=== PATIENT | female | born 1960 | race Caucasian/White ===

== ENCOUNTER → 2019-09-21 13:40 | Outpatient (BNVA) | payer BC, SELFPAY | PROVIDERS: Family Provider Internal Medicine; Referring Provider Internal Medicine; Visit Provider Otolaryngology | DX: E21.0 Primary hyperparathyroidism (principal) | CPT/HCPCS: 99213; 99214 ==

== ENCOUNTER 2020-08-27 16:05 | Emergency (ER) | payer OTHER, SELFPAY ==
[2020-08-27] VITALS (9 sets, daily range): BP systolic 115–147; BP diastolic 72–99; PULSE 90–116; RESP 17–23; TEMP 38.2; O2SAT 92–100; BMI 33.6
--- NOTE | 2020-08-27 17:16 | XRR_ITS ---
PROCEDURE INFORMATION: Exam: XR Chest, 1 View Exam date and time: 08/27/2020 5:30 PM Age: 60 years old Clinical indication: Shortness of breath; Patient HX: Covid +. SOB; Additional info: SOB. Note: Bra in picture TECHNIQUE: Imaging protocol: XR of the chest Views: 1 view. COMPARISON: CR Chest 1 [place] [id number] 07/11/2019 1:27 PM FINDINGS: Lungs: Hazy bilateral interstitial pulmonary infiltrates have developed since old chest radiographs. This is consistent with an interstitial pneumonitis possibly viral in nature. There is mild atelectasis along the diaphragm. Pleural space: Unremarkable. No pleural effusion. No pneumothorax. Heart/Mediastinum: Unremarkable. No cardiomegaly. Bones/joints: Unremarkable. XR/XR chest 1V portable [id number] IMPRESSION: Bilateral interstitial pulmonary infiltrates consistent with a viral pneumonitis.
--- NOTE | 2020-08-27 17:16 | ECG_ITS ---
[facility] Test Date: 2020-08-27 Pat Name: Pari Linares Department: Room: Gender: Female Maintenance Superintendent: : 1960 Requested By: Marce Diehl Order Number: [id number] Butch MD: Cinthya Tilley M.D. Measurements Intervals [place] Rate: 115 P: GA: QRS: -14 QRSD: 100 T: 74 QT: 348 QTc: 482 Interpretive Statements ATRIAL FIBRILLATION WITH RAPID VENTRICULAR RESPONSE INCOMPLETE RIGHT BUNDLE BRANCH BLOCK [90+ ms QRS DURATION, TERMINAL R IN V1/V2, 40+ ms S IN I/aVL/V4/V5/V6] MINIMAL ST DEPRESSION [0.025+ mV ST DEPRESSION] ABNORMAL RHYTHM ECG Compared to ECG 07/12/2019 08:29:57 Incomplete right bundle-branch block now present ST (T wave) deviation now present Atrial flutter no longer present T-wave abnormality no longer present Electronically Signed On 08-28-2020 23:42:33 REPRODUCTION ARTIST by Cinthya Tilley M.D. [id number]
--- NOTE | 2020-08-27 17:34 | ED_ITS ---
Documented by User: Lance Moran DO 08/29/20 14:31 HPI - COVID General: Chief Complaint: COVID symptoms Stated Complaint: COVID+/ SOB/ Time Seen by Provider: 08/27/20 17:16 Triage information: Has fever, cough or shortness of breath . No known COVID + exposure last 14 days History of Present Illness: HPI Narrative: 60-year-old female presents emergency room with complaint of shortness of breath cough diarrhea and fever. She tested positive for COVID-19 at [facility] on 08/20. She is not on oxygen at home and is not needing any supplemental oxygen at this time. She is on Eliquis because of a history of atrial fibrillation as well as diltiazem and propafenone. She supposed to be on 1-1/2 tablets 3 times daily. She only took 1 dose today. She is noted that when she arrived she is in A. fib with RVR with a rapid rate. MD complaint: known COVID positive Prior covid testing: yes, results known Prior testing date: 08/20/20 COVID 19 common symptoms: positive fever(s), chills, cough, non-productive cough, dyspnea, fatigue, body aches, loss of sense of smell and/or taste, nasal congestion, nausea, vomiting and diarrhea; negative productive cough or headache(s) COVID 19 other sytmptoms: negative chest pain or requiring oxygen Onset (ago): day(s) Severity: mild Pertinent comorbid conditions: diabetes, hypertension and other (Atrial fibrillation) COVID Results: No Data to Display Review of Systems Const: Reports: fever(s), chills, body aches and fatigue ENMT: Reports: nasal congestion Card: Denies: chest pain, edema, dyspnea on exertion or orthopnea Resp: Reports: dyspnea and non-productive cough; Denies: productive cough GI: Reports: nausea, vomiting and diarrhea : Denies: flank pain, difficulty voiding, dysuria, urinary frequency or urinary urgency Skin/Breast: Denies: rash or pruritus Neuro: Denies: headache(s) PFSH ED PFSH: Medical History Anticoagulation adequate with anticoagulant therapy Atrial flutter Diabetes Essential hypertension Fibromyalgia Obesity Supraventricular tachycardia Family History Other CAD (coronary artery disease) Cancer Diabetes Stroke Social History Smoking and tobacco status: never smoked Alcohol intake: former Former alcohol use details: very rare use and none in the last 3 years Physical Exam Const: COMMON NORMALS: no acute distress GENERAL APPEARANCE: cooperative and comfortable ORIENTATION/CONSCIOUSNESS: Yes awake, Yes oriented to person, Yes oriented to place and Yes oriented to time HENMT: COMMON NORMALS: normocephalic, atraumatic and hearing grossly normal bilaterally HEAD & SCALP: normocephalic and atraumatic Eye: COMMON NORMALS: Equal, round and reactive pupils present, EOMs intact cody aterally, conjunctivae normal and no scleral icterus CONJUNCTIVA: Yes conjunctivae normal PUPIL: Yes Equal, round and reactive pupils present Neck/C-Spine: COMMON NORMALS: full ROM, no lymphadenopathy, supple and no JVD Lymph: LYMPHATIC: no lymphadenopathy noted and no lymphedema noted Resp: COMMON NORMALS: normal respiratory effort, No retractions and No use of accessory muscles AUSCULTATION: crackles and wheezes Cardio: COMMON NORMALS: no JVD and No murmurs present (Cardio) RATE: tachycardic RHYTHM: abnormal rhythm irregularly irregular GI: COMMON NORMALS: Soft to palpation and No hepatosplenomegaly present AUSCULTATION: Yes normoactive bowel sounds PALPATION: Yes Soft to palpation, No Tenderness to palpation present (GI), No Guarding due to palpation present (GI) and Yes No hepatosplenomegaly present Extremity: COMMON NORMALS: normal to inspection, capillary refill normal, no clubbing, cyanosis or edema, no calf tenderness and no pedal edema Neuro: SENSORIUM/ORIENTATION: Yes oriented to person, Yes oriented to place and Yes oriented to time Skin: COMMON NORMALS: no rashes or lesions noted GENERAL SKIN EXAM: no rashes or lesions noted Course Vital Signs: Vital signs: Vital Signs Temperature 100.7 F H 08/27/20 16:13 Pulse Rate 90 08/27/20 22:02 Respiratory Rate 20 H 08/27/20 22:02 Blood Pressure 130/82 08/27/20 22:02 Pulse Oximetry 99 08/27/20 22:02 MDM - COVID MDM Narrative: Medical decision making narrative: Patient initially presented in A. fib but not taken her medications. She was given a full dose of her home propafenone and converted. Care turned over to Dr. Carpenter at change of shift see his notes for final diagnosis and disposition. Lab Data: Labs: Lab Results 08/27/20 08/27/20 08/27/20 Range/Units 17:45 18:00 18:00 WBC 5.7 (4.0-10.0) 10^3/ uL RBC 5.30 (4.1-5.3) 10^6/u L Hgb 15.1 (11.5-15.3) g/dL Hct 46.7 (37.0-47.0) % MCV 88.1 (81-99) fL MCH 28.5 (28.0-34.0) pg MCHC 32.3 (30.0-36.0) g/dL RDW 13.2 (12.1-15.1) % Plt Count 179 (130-400) 10^3/c mm MPV 12.0 H (7.4-10.4) fL Neut % (Auto) 77.9 % Lymph % (Auto) 15.1 % Christian % (Auto) 6.5 % Eos % (Auto) 0.0 % Baso % (Auto) 0.0 % Neut # (Auto) 4.44 (1.8-7.7) 10^3/u L Lymph # (Auto) 0.9 (0.8-4.8) 10^3/u L Christian # (Auto) 0.4 (0.2-0.9) 10^3/u L Eos # (Auto) 0.0 (0.0-0.8) 10^3/u L Baso # (Auto) 0.0 (0.0-0.1) 10^3/u L Nucleated RBC % (a uto) 0 % Nucleated RBCs # 0.0 /100WBC D-Dimer 0.61 H (0-0.59) ug/mIFE U Specimen Type Arterial Sample Site Brachial, right ABG pH 7.48 H (7.35-7.45) ABG pCO2 32.5 L (35-45) mmHg ABG pO2 64.9 L (80.0-100.0) mmH g ABG HCO3 24.2 (22-26) mmol/L ABG Base Excess 1.4 (-2.0-2.0) mmol/ L Neal Test Pos Hematocrit 45.9 (37-47) % O2 Delivery Device Room air FiO2 21.0 % Truck Driver'S Offsider ID Bd Sodium (136-145) mmol/L Potassium (3.5-5.1) mmol/L Chloride (98-107) mmol/L Carbon Dioxide (22-29) mmol/L Anion Gap (5-19) BUN (8-23) mg/dL Creatinine (0.5-0.9) mg/dL GFR Calculation (90-130) mL/min Glucose (65-115) mg/dL Calculated Osmolal ity (285-295) mOsm/k g Lactic Acid (0.5-2.2) mmol/L Calcium (8.5-10.5) mg/dL Magnesium (1.7-2.3) mg/dL Total Bilirubin (0.15-1.2) mg/dL AST (0-32) U/L ALT (0-33) U/L Alkaline Phosphata se (35-105) IU/L C-Reactive Protein (0.0-4.9) mg/L NT-Pro-B Natriuret Pep (0-125) pg/mL Total Protein (6.6-8.7) g/dL Albumin (3.5-5.2) g/dL Globulin (1.3-4.6) g/dL Procalcitonin (0-0.5) ng/mL 08/27/20 08/27/20 Range/Units 18:00 18:00 WBC (4.0-10.0) 10^3/ uL RBC (4.1-5.3) 10^6/u L Hgb (11.5-15.3) g/dL Hct (37.0-47.0) % MCV (81-99) fL MCH (28.0-34.0) pg MCHC (30.0-36.0) g/dL RDW (12.1-15.1) % Plt Count (130-400) 10^3/c mm MPV (7.4-10.4) fL Neut % (Auto) % Lymph % (Auto) % Christian % (Auto) % Eos % (Auto) % Baso % (Auto) % Neut # (Auto) (1.8-7.7) 10^3/u L Lymph # (Auto) (0.8-4.8) 10^3/u L Christian # (Auto) (0.2-0.9) 10^3/u L Eos # (Auto) (0.0-0.8) 10^3/u L Baso # (Auto) (0.0-0.1) 10^3/u L Nucleated RBC % (a uto) % Nucleated RBCs # /100WBC D-Dimer (0-0.59) ug/mIFE U Specimen Type Sample Site ABG pH (7.35-7.45) ABG pCO2 (35-45) mmHg ABG pO2 (80.0-100.0) mmH g ABG HCO3 (22-26) mmol/L ABG Base Excess (-2.0-2.0) mmol/ L Neal Test Hematocrit (37-47) % O2 Delivery Device FiO2 % Truck Driver'S Offsider ID Sodium 135 L (136-145) mmol/L Potassium 4.5 (3.5-5.1) mmol/L Chloride 99 (98-107) mmol/L Carbon Dioxide 22 (22-29) mmol/L Anion Gap 18.5 (5-19) BUN 12 (8-23) mg/dL Creatinine 0.6 (0.5-0.9) mg/dL GFR Calculation 102.0 (90-130) mL/min Glucose 212 H (65-115) mg/dL Calculated Osmolal ity 286 (285-295) mOsm/k g Lactic Acid 1.8 (0.5-2.2) mmol/L Calcium 9.3 (8.5-10.5) mg/dL Magnesium 1.9 (1.7-2.3) mg/dL Total Bilirubin 0.4 (0.15-1.2) mg/dL AST 26 (0-32) U/L ALT 24 (0-33) U/L Alkaline Phosphata se 120 H (35-105) IU/L C-Reactive Protein 73.3 H (0.0-4.9) mg/L NT-Pro-B Natriuret Pep 43 (0-125) pg/mL Total Protein 6.7 (6.6-8.7) g/dL Albumin 3.5 (3.5-5.2) g/dL Globulin 3.2 (1.3-4.6) g/dL Procalcitonin 0.06 (0-0.5) ng/mL COVID Results: No Data to Display Discharge Plan Discharge Patient Disposition: Home Clinical Impression: COVID-19 Condition: Stable Prescriptions: New ondansetron 4 mg tablet,disintegrating 4 mg PO Q6H PRN (Reason: nausea and vomiting) Qty: 14 RF: 0 No Action Eliquis 5 mg tablet 5 mg PO BID RF: 0 cholecalciferol (vitamin D3) 1,000 unit capsule 1,000 unit PO QDAY RF: 0 diltiazem HCl 120 mg capsule,extended release 12 hr 120 mg PO DAILY RF: 0 propafenone 150 mg tablet 225 mg PO TID RF: 0 gabapentin 100 mg capsule 100 mg PO TID PRNRF: 0 Discharge Orders: Discharge ED (Routine); Ordered 08/27/20 Ordered By: Radha Carpenter Other Ambulatory Orders: DME: Oxygen (Order) Location: None Selected Ordered By: Radha Carpenter Referrals: Leonel Tipton DO [Primary Care Provider] - 1-3 days Discharge Diet: Advance as tolerated Discharge Activity: Resume usual activity Patient Instructions: Dyspnea (ED) Coding Level of Care Code ED Copyright Clerk for Chg Fwd Exam Comprehensive Documented by User: Radha Carpenter MD 08/27/20 20:49 HPI - COVID General: Chief Complaint: COVID symptoms Stated Complaint: COVID+/ SOB/ Time Seen by Provider: 08/27/20 17:16 COVID Results: No Data to Display PFSH ED PFSH: Medical History Anticoagulation adequate with anticoagulant therapy Atrial flutter Diabetes Essential hypertension Fibromyalgia Obesity Supraventricular tachycardia Family History Other CAD (coronary artery disease) Cancer Diabetes Stroke Social History Smoking and tobacco status: never smoked Alcohol intake: former Former alcohol use details: very rare use and none in the last 3 years Course Vital Signs: Vital signs: Vital Signs Temperature 100.7 F H 08/27/20 16:13 Pulse Rate 90 08/27/20 22:02 Respiratory Rate 20 H 08/27/20 22:02 Blood Pressure 130/82 08/27/20 22:02 Pulse Oximetry 99 08/27/20 22:02 MDM - COVID MDM Narrative: Medical decision making narrative: Pari presents here with dyspnea likely due to her COVID-19. Patient's pulse ox here is 93% and lab work here is all normal. I feel she is stable for discharge. She has had no distress here. We will place her on home oxygen as needed. She is to return if worsening. She understands and agrees to plan. Lab Data: Labs: Lab Results 08/27/20 08/27/20 08/27/20 Range/Units 17:45 18:00 18:00 WBC 5.7 (4.0-10.0) 10^3/ uL RBC 5.30 (4.1-5.3) 10^6/u L Hgb 15.1 (11.5-15.3) g/dL Hct 46.7 (37.0-47.0) % MCV 88.1 (81-99) fL MCH 28.5 (28.0-34.0) pg MCHC 32.3 (30.0-36.0) g/dL RDW 13.2 (12.1-15.1) % Plt Count 179 (130-400) 10^3/c mm MPV 12.0 H (7.4-10.4) fL Neut % (Auto) 77.9 % Lymph % (Auto) 15.1 % Christian % (Auto) 6.5 % Eos % (Auto) 0.0 % Baso % (Auto) 0.0 % Neut # (Auto) 4.44 (1.8-7.7) 10^3/u L Lymph # (Auto) 0.9 (0.8-4.8) 10^3/u L Christian # (Auto) 0.4 (0.2-0.9) 10^3/u L Eos # (Auto) 0.0 (0.0-0.8) 10^3/u L Baso # (Auto) 0.0 (0.0-0.1) 10^3/u L Nucleated RBC % (a uto) 0 % Nucleated RBCs # 0.0 /100WBC D-Dimer 0.61 H (0-0.59) ug/mIFE U Specimen Type Arterial Sample Site Brachial, right ABG pH 7.48 H (7.35-7.45) ABG pCO2 32.5 L (35-45) mmHg ABG pO2 64.9 L (80.0-100.0) mmH g ABG HCO3 24.2 (22-26) mmol/L ABG Base Excess 1.4 (-2.0-2.0) mmol/ L Neal Test Pos Hematocrit 45.9 (37-47) % O2 Delivery Device Room air FiO2 21.0 % Truck Driver'S Offsider ID Bd Sodium (136-145) mmol/L Potassium (3.5-5.1) mmol/L Chloride (98-107) mmol/L Carbon Dioxide (22-29) mmol/L Anion Gap (5-19) BUN (8-23) mg/dL Creatinine (0.5-0.9) mg/dL GFR Calculation (90-130) mL/min Glucose (65-115) mg/dL Calculated Osmolal ity (285-295) mOsm/k g Lactic Acid (0.5-2.2) mmol/L Calcium (8.5-10.5) mg/dL Magnesium (1.7-2.3) mg/dL Total Bilirubin (0.15-1.2) mg/dL AST (0-32) U/L ALT (0-33) U/L Alkaline Phosphata se (35-105) IU/L C-Reactive Protein (0.0-4.9) mg/L NT-Pro-B Natriuret Pep (0-125) pg/mL Total Protein (6.6-8.7) g/dL Albumin (3.5-5.2) g/dL Globulin (1.3-4.6) g/dL Procalcitonin (0-0.5) ng/mL 08/27/20 08/27/20 Range/Units 18:00 18:00 WBC (4.0-10.0) 10^3/ uL RBC (4.1-5.3) 10^6/u L Hgb (11.5-15.3) g/dL Hct (37.0-47.0) % MCV (81-99) fL MCH (28.0-34.0) pg MCHC (30.0-36.0) g/dL RDW (12.1-15.1) % Plt Count (130-400) 10^3/c mm MPV (7.4-10.4) fL Neut % (Auto) % Lymph % (Auto) % Christian % (Auto) % Eos % (Auto) % Baso % (Auto) % Neut # (Auto) (1.8-7.7) 10^3/u L Lymph # (Auto) (0.8-4.8) 10^3/u L Christian # (Auto) (0.2-0.9) 10^3/u L Eos # (Auto) (0.0-0.8) 10^3/u L Baso # (Auto) (0.0-0.1) 10^3/u L Nucleated RBC % (a uto) % Nucleated RBCs # /100WBC D-Dimer (0-0.59) ug/mIFE U Specimen Type Sample Site ABG pH (7.35-7.45) ABG pCO2 (35-45) mmHg ABG pO2 (80.0-100.0) mmH g ABG HCO3 (22-26) mmol/L ABG Base Excess (-2.0-2.0) mmol/ L Neal Test Hematocrit (37-47) % O2 Delivery Device FiO2 % Truck Driver'S Offsider ID Sodium 135 L (136-145) mmol/L Potassium 4.5 (3.5-5.1) mmol/L Chloride 99 (98-107) mmol/L Carbon Dioxide 22 (22-29) mmol/L Anion Gap 18.5 (5-19) BUN 12 (8-23) mg/dL Creatinine 0.6 (0.5-0.9) mg/dL GFR Calculation 102.0 (90-130) mL/min Glucose 212 H (65-115) mg/dL Calculated Osmolal ity 286 (285-295) mOsm/k g Lactic Acid 1.8 (0.5-2.2) mmol/L Calcium 9.3 (8.5-10.5) mg/dL Magnesium 1.9 (1.7-2.3) mg/dL Total Bilirubin 0.4 (0.15-1.2) mg/dL AST 26 (0-32) U/L ALT 24 (0-33) U/L Alkaline Phosphata se 120 H (35-105) IU/L C-Reactive Protein 73.3 H (0.0-4.9) mg/L NT-Pro-B Natriuret Pep 43 (0-125) pg/mL Total Protein 6.7 (6.6-8.7) g/dL Albumin 3.5 (3.5-5.2) g/dL Globulin 3.2 (1.3-4.6) g/dL Procalcitonin 0.06 (0-0.5) ng/mL Imaging Data: CXR: Attestation: I personally reviewed and interpreted this imaging study as follows: My impression: Slight perihilar infiltrates COVID Results: No Data to Display Discharge Plan Discharge Patient Disposition: Home Clinical Impression: COVID-19 Condition: Stable Prescriptions: New ondansetron 4 mg tablet,disintegrating 4 mg PO Q6H PRN (Reason: nausea and vomiting) Qty: 14 RF: 0 No Action Eliquis 5 mg tablet 5 mg PO BID RF: 0 cholecalciferol (vitamin D3) 1,000 unit capsule 1,000 unit PO QDAY RF: 0 diltiazem HCl 120 mg capsule,extended release 12 hr 120 mg PO DAILY RF: 0 propafenone 150 mg tablet 225 mg PO TID RF: 0 gabapentin 100 mg capsule 100 mg PO TID PRNRF: 0 Discharge Orders: Discharge ED (Routine); Ordered 08/27/20 Ordered By: Radha Carpenter Other Ambulatory Orders: DME: Oxygen (Order) Location: None Selected Ordered By: Radha Carpenter Referrals: Leonel Tipton DO [Primary Care Provider] - 1-3 days Discharge Diet: Advance as tolerated Discharge Activity: Resume usual activity Patient Instructions: Dyspnea (ED) Coding Level of Care Code ED Copyright Clerk for Chg Fwd Exam Comprehensive
[2020-08-27 17:56] LABS: ABG PCO2 32.5 mmHg (35-45); ABG PH Result 7.48 (7.35-7.45); Arterial Blood Gas Hematocrit 45.9 % (37-47); Base Excess ABG 1.4 mmol/L (-2.0-2.0); Blood Gas Allen Test Pos; Blood Gas Operator Identificat BD; Blood Gas Sample Site Brachial, right; Blood Gas Sample Type Arterial; HCO3 ABG 24.2 mmol/L (22-26); Oxygen Device ROOM AIR; PO2 ABG 64.9 mmHg (80.0-100.0)
[2020-08-27] MEDS: propafenone 150 mg Tablet PO (18:16)
[2020-08-27] MEDS: acetaminophen 325 mg Tablet 650 MG PO (18:16)
[2020-08-27 18:53] LABS: Hematocrit 46.7 % (37.0-47.0); Hemoglobin 15.1 g/dL (11.5-15.3); Lymphocytes # 0.9 10^3/uL (0.8-4.8); Lymphocytes % 15.1 %; Mean Corpuscular HGB Conc 32.3 g/dL (30.0-36.0); Mean Corpuscular Hemoglobin 28.5 pg (28.0-34.0); Mean Corpuscular Volume 88.1 fL (81-99); Monocytes # 0.4 10^3/uL (0.2-0.9); Monocytes % 6.5 %; Neutrophils # 4.44 10^3/uL (1.8-7.7); Neutrophils % 77.9 %; Nucleated Red Blood Cells % 0 %; Platelet Count 179 10^3/cmm (130-400); Red Cell Distribution Width 13.2 % (12.1-15.1); White Blood Count 5.7 10^3/uL (4.0-10.0)
[2020-08-27 19:46] LABS: Lactic Sepsis W/Reflex 1.8 mmol/L (0.5-2.2)
[2020-08-27] MEDS: sodium chloride 0.9% 1,000 ML 999 ML IV (20:05)
[2020-08-27 20:06] LABS: NT Pro B Type Natriuretic Pept 43 pg/mL (0-125); Procalcitonin 0.06 ng/mL (0-0.5)
[2020-08-27 20:18] LABS: Alanine Aminotransferase 24 U/L (0-33); Albumin Level 3.5 g/dL (3.5-5.2); Alkaline Phosphatase 120 IU/L (35-105); Blood Urea Nitrogen 12 mg/dL (8-23); C Reactive Protein 73.3 mg/L (0.0-4.9); Calcium 9.3 mg/dL (8.5-10.5); Carbon Dioxide 22 mmol/L (22-29); Chloride 99 mmol/L (98-107); Globulin 3.2 g/dL (1.3-4.6); Glucose 212 mg/dL (65-115); Magnesium 1.9 mg/dL (1.7-2.3); Osmolality Calculated 286 mOsm/kg (285-295); Sodium 135 mmol/L (136-145); Total Bilirubin 0.4 mg/dL (0.15-1.2); Total Protein 6.7 g/dL (6.6-8.7)
[2020-08-27 20:20] LABS: Anion Gap 18.5 (5-19); Potassium 4.5 mmol/L (3.5-5.1)
[2020-08-27 20:21] LABS: Aspartate Amino Transferase 26 U/L (0-32)
[2020-08-27 20:23] LABS: D Dimer 0.61 ug/mIFEU (0-0.59)
== END 2020-08-27 22:04 | disposition home or self-care (01) ==
PROVIDERS: Family Medicine; Emergency Provider Emergency Medicine; PCP Internal Medicine
DX: U07.1 COVID-19 (principal); Z79.01 Long term (current) use of anticoagulants; I10 Essential (primary) hypertension; E11.9 Type 2 diabetes mellitus without complications
CPT/HCPCS: 12345; 36600; 71045; 80053; 82803; 83605; 83735; 83880; 84145; 85025; 85378; 86140; 93005; 96360; 99282; 99283; J7030

== ENCOUNTER → 2020-11-22 09:10 | Outpatient (BNVA) | payer OTHER, SELFPAY | PROVIDERS: PCP Internal Medicine; Visit Provider Nurse Practitioner Women's Health | DX: Z01.419 Encounter for gynecological examination (general) (routine) without abnormal findings (principal); Z12.39 Encounter for other screening for malignant neoplasm of breast; Z79.01 Long term (current) use of anticoagulants; N93.0 Postcoital and contact bleeding | CPT/HCPCS: 88175 ==

== ENCOUNTER 2021-01-02 14:42 | Outpatient (CLI) | payer OTHER, SELFPAY ==
--- NOTE | 2021-01-02 15:30 | MM_ITS ---
WS: [id number] BILATERAL DIGITAL SCREENING MAMMOGRAPHY WITH CAD CLINICAL INFORMATION: Z12.39 - Encounter for other screening for malignant neoplasm of breast HISTORY: Screening mammogram. No current complaints. COMPARISON: February 18, 2019 TECHNIQUE: Bilateral CC and MLO views. FINDINGS: Scattered fibroglandular densities bilaterally. No suspicious focal mass, asymmetry, calcifications, or architectural distortion. No evidence of malignancy. A few punctate calcifications. MM/[place] [id number] IMPRESSION: BI-RADS: 2-Benign FOLLOW UP: 1 Year Follow-up Recommend return to annual screening mammography.
== END 2021-01-02 14:43 | disposition home or self-care (01) ==
LOC: RADSHAW 14:45
PROVIDERS: PCP Internal Medicine; Visit Provider Nurse Practitioner Women's Health
DX: Z12.31 Encounter for screening mammogram for malignant neoplasm of breast (principal)
CPT/HCPCS: 77067

== ENCOUNTER → 2021-05-23 10:43 | Outpatient (BNVA) | payer OTHER, SELFPAY | PROVIDERS: PCP Internal Medicine; Visit Provider Nurse Practitioner Women's Health | DX: N95.0 Postmenopausal bleeding (principal) | CPT/HCPCS: 76830 ==

== ENCOUNTER → 2021-06-04 11:46 | Outpatient (BNVA) | payer OTHER, SELFPAY | PROVIDERS: PCP Internal Medicine; Visit Provider Nurse Practitioner Women's Health | DX: N95.0 Postmenopausal bleeding (principal) | CPT/HCPCS: 88305 ==

== ENCOUNTER → 2021-08-08 10:51 | Outpatient (BNVA) | payer OTHER, SELFPAY | PROVIDERS: PCP Internal Medicine; Visit Provider Obstetrics & Gynecology | DX: Z20.822 Contact with and (suspected) exposure to COVID-19 (principal); N95.0 Postmenopausal bleeding | CPT/HCPCS: 87635 ==

== ENCOUNTER 2021-08-13 08:45 | Day surgery (SDC) | payer OTHER, SELFPAY ==
--- NOTE | 2021-08-08 13:15 | ECG_ITS ---
[facility] Test Date: 2021-08-08 Pat Name: Pari Linares Department: Room: Gender: Female Surgical Technician: : 1960 Requested By: Osmel Earl Order Number: [id number] Butch MD: Wilson Ann M.D. Measurements Intervals [place] Rate: 76 P: 90 MN: 204 QRS: -17 QRSD: 104 T: 63 QT: 391 QTc: 441 Interpretive Statements SINUS RHYTHM WITH FREQUENT SUPRAVENTRICULAR PREMATURE COMPLEXES INCOMPLETE RIGHT BUNDLE BRANCH BLOCK [90+ ms QRS DURATION, TERMINAL R IN V1/V2, 40+ ms S IN I/aVL/V4/V5/V6] NONSPECIFIC T-WAVE ABNORMALITY Compared to ECG 08/27/2020 19:46:40 T-wave abnormality now present Atrial fibrillation no longer present ST (T wave) deviation no longer present Electronically Signed On 08-10-2021 7:49:17 HAND BRUSH FILLER by Wilson Ann M.D. [id number]
[2021-08-08 13:16] VITALS: BMI 31.8
--- NOTE | 2021-08-08 19:49 | ANES.PREANE2 ---
Pre-Anesthetic Assessment Pre-Anesthetic Assessment: Height/Weight: Height 1.6 m Weight 81.647 kg Preop Diagnosis: pmb, thickened endometrium Proposed Procedure: Operation Date: 08/13/21 11:30 Proposed Procedures p Hysteroscopy w/ Myosure [id number] N95.0(Not Applicable) - Stefania Wylie MD s Dilation And Curettage (D&C)(Not Applicable) - Stefania Wylie MD Was Beta Yanira taken within 24 hours: N/A Was Clonidine taken within 24 hours: N/A Social: Social History: No alcohol and No tobacco Exam: Pre-Anes Outpt Exam: alert, oriented x 3 and clear to auscultation bilaterally Airway: Submandibular: WNL Cervical ROM: WNL MP: 2 Pulmonary: Pulmonary: None reported CV/HEM: CV/HEM: Afib, Arrythmia and HTN : : None reported Hepatic: Hepatic: None reported GI: GI: None reported Metabolic: Comments: Primary Hyperparathyroidism Musc/skel: Musc/skel: Fibromyalgia Neuropsych: Neuropsych: None reported Anesthetic Plan: ASA status: 3 PFSH Anesthesia PFSH: Medical History Anticoagulation adequate with anticoagulant therapy Atrial flutter Diabetes Essential hypertension Fibromyalgia Insomnia Obesity Supraventricular tachycardia Surgical History H/O tubal ligation (~1987) History of appendectomy (~2002) History of cholecystectomy (~2003) History of coronary angioplasty (~1999) History of right salpingo-oophorectomy (~1987) History of tonsillectomy and adenoidectomy Hx of hand surgery (~2012) R hand- crps Family History Father Colon cancer dx age 83 Stroke Diabetes Grandmother Diabetes Maternal and Paternal Heart disease Maternal and Paternal Mother Heart disease Hypercholesteremia Stroke Grandfather Heart disease Maternal and Paternal Denies family history of Ovarian cancer Breast cancer Hypertension Uterine cancer Thyroid disease Data Anesthesia Cardiac Studies: No Data to Display
[2021-08-13 08:55] VITALS: BP 149/104; PULSE 86; RESP 18; TEMP 36.2; O2SAT 97
[2021-08-13] MEDS: sodium chloride 0.9% 1,000 ML 30 ML IV (09:08)
[2021-08-13 09:15] LABS: Glucose Point of Care 182 mg/dL (70-110)
--- NOTE | 2021-08-13 09:41 | P.ANESUD_ITS ---
Pre-Anesthetic Update Pre-Anesthetic Assessment: Date of Surgery/Procedure: 08/13/21 Preop Yokasta gnosis: pmb, thickened endometrium Proposed Procedure: Operation Date: 08/13/21 10:10 Proposed Procedures p Hysteroscopy w/ Myosure [id number] N95.0(Not Applicable) - Stefania Wylie MD s Dilation And Curettage (D&C)(Not Applicable) - Stefania Wylie MD Any changes to Pre-Anesthetic Assessment?: No Last Intake: Intake Last Liquid Date 08/12/21 Last Liquid Time 22:30 Last Solid Date 08/12/21 Last Solid Time 17:00 Labs Last 48hrs: Laboratory Results - last 48 hr 08/13/21 09:10 POC Glucose 182 H Vitals: Temperature 97.1 F L 08/13/21 08:55 Temperature Source Temporal Artery S can 08/13/21 08:55 Pulse Rate 86 08/13/21 08:55 Respiratory Rate 18 08/13/21 08:55 Blood Pressure 149/104 08/13/21 08:55 Blood Pressure Kianna n 119 08/13/21 08:55 Pulse Oximetry 97 08/13/21 08:55 Oxygen Delivery Me thod 08/13/21 08:59 Exam: Pre-Anes Outpt Exam: alert, oriented x 3, clear to auscultation bilaterally and regular rate & rhythm Cardiac Studies: No Data to Display
--- NOTE | 2021-08-13 10:12 | W.PM.OPSUD ---
Surgery/Procedure H&P Update DATE OF PROCEDURE: August 13, 2021 DATE H&P PERFORMED: 07/12/21 H&P UPDATE INFORMATION: I have reviewed H&P completed within last 30 days, I have examined patient prior to procedure and No changes to prior documentation PREOP DIAGNOSIS: pmb, thickened endometrium PLANNED PROCEDURE: Operation Date: 08/13/21 10:10 Proposed Procedures p Hysteroscopy w/ Myosure [id number] N95.0(Not Applicable) - Stefania Wylie MD s Dilation And Curettage (D&C)(Not Applicable) - Stefania Wylie MD
[2021-08-13 11:14] VITALS: BP 94/47; PULSE 81; RESP 12; TEMP 36.1; O2SAT 94
--- NOTE | 2021-08-13 11:15 | P.OP_ITS ---
Operative Report Date of procedure: August 13, 2021 Pre-op Diagnosis: pmb, thickened endometrium Post-op diagnosis: same Post-op Findings: normal appearing endometrium with two polyps Procedure Done: hysteroscopy, dilation and curettage with myosure Specimens removed/disposition: endometrial polyps to pathology Surgeon: Stefania Wylie Anesthesia: MAC Estimated blood loss (mL): 0 IV fluids (mL): 300 Complications: none Condition: stable Disposition: PACU Procedure: The patient was taken to the operating room where monitored anesthesia was administered and to be adequate. She was prepped and draped in the normal sterile fashion in the dorsal lithotomy position in [facility]. A weighted speculum was placed into the vagina and the anterior lip of the cervix grasped with a single-tooth tenaculum. The uterus was sounded to 9 cm. The cervix was dilated to 17 Turkish. The hysteroscope was advanced into the endometrial cavity. There were two endometrial polyps visualized. The MyoSure device was activated and the tissue was removed. Pictures were taken pre and post procedure. All instruments were removed. The patient tolerated the procedure well. Sponge lap and needle counts were correct x3. She was taken to the recovery room in stable condition.
[2021-08-13 11:19] VITALS: BP 114/63; PULSE 81; RESP 14; TEMP 36.2; O2SAT 93
--- NOTE | 2021-08-13 11:19 | P.DS_ITS ---
Discharge Providers Date of Discharge: August 13, 2021 Attending Provider at Discharge: Stefania Wylie MD Primary Care Provider: Leonel Tipton DO Diagnoses at Discharge Discharge Diagnosis (1) Postoperative state: Status: Acute Reason for Visit Reason for Visit: Postmenopausal bleeding Hospital Course Hospital Course The patient presented for surgery. She did well postoperatively and was ready for discharge. Discharge Data Data Completed and Pending: Pending at discharge Category Date Time Status ES surgery / GI i mages Routine Exams 08/13/21 10:53 Taken Pathology: Surgic al [PTH] Routine Pth 08/13/21 11:19 Ordered Labs from last 24 hours 08/13/21 09:10 POC Glucose 182 H Vitals: Last Vital Signs Temp 97.0 F L 08/13/21 11:14 Pulse 81 08/13/21 11:14 Resp 12 08/13/21 11:14 BP 94/47 08/13/21 11:14 Pulse Ox 94 08/13/21 11:14 Discharge Plan Discharge Patient Disposition: Home Condition: Stable Prescriptions: Continued Eliquis 5 mg tablet 5 mg PO BID RF: 0 diltiazem HCl 120 mg capsule,extended release 12 hr 120 mg PO DAILY RF: 0 gabapentin 100 mg capsule 100 mg PO TID PRN (Reason: Pain) RF: 0 cholecalciferol (vitamin D3) 25 mcg (1,000 unit) capsule 4,000 unit PO QDAY RF: 0 propafenone 225 mg tablet 225 mg PO TID Qty: 270 RF: 0 misoprostol [Cytotec] 200 mcg tablet 600 mcg PO Q6H Qty: 12 RF: 0 Discharge Orders: Discharge Order (Routine); Ordered 08/13/21 Ordered By: Stefania Wylie Discharge Attestations Time Spent in Discharge Care*: less than 30 min Quality Metrics Clinical Quality Measures During this hospital stay, did patient experience: None Coding Level of Care Code Acute Ch[facility] note Diagnoses Postoperative state Z98.890
[2021-08-13 11:24] VITALS: BP 76/54; PULSE 80; RESP 18; TEMP 36.8; O2SAT 90
[2021-08-13 11:34] VITALS: BP 126/80; PULSE 79; RESP 16; TEMP 36.7; O2SAT 92
--- NOTE | 2021-08-13 13:19 | ANE.PACU2 ---
Inpatient post-anesthesia follow up: Airway intact: Yes Vital signs: Temperature 98.1 F Pulse Rate 79 Respiratory Rate 16 Blood Pressure 126/80 Pulse Oximetry 92 Oxygen Delivery Me thod Room Air Oxygen Flow Rate Fraction of Inspir ed Oxygen Hydration adequate: Yes Nausea and vomiting: No Pain level: 2 Mental status: Baseline
== END 2021-08-13 12:05 | disposition home or self-care (01) ==
PROVIDERS: PCP Internal Medicine; Visit Provider Obstetrics & Gynecology
PROC: 0UDB8ZZ Extraction of Endometrium, Via Natural or Artificial Opening Endoscopic (ICD-10-PCS; CPT 58558; principal; 2021-08-13 10:00)
PROC: (CPT 58120; 2021-08-13 10:00)
DX: N95.0 Postmenopausal bleeding (principal); R93.89 Abnormal findings on diagnostic imaging of other specified body structures; N84.0 Polyp of corpus uteri; I48.91 Unspecified atrial fibrillation; I10 Essential (primary) hypertension; E21.3 Hyperparathyroidism, unspecified; E66.9 Obesity, unspecified; Z68.31 Body mass index [BMI] 31.0-31.9, adult; Z79.84 Long term (current) use of oral hypoglycemic drugs; Z79.01 Long term (current) use of anticoagulants
CPT/HCPCS: 58558; 36416; 82962; 88305; 93005; J0690; J1885; J2704; J3010; J7030

== ENCOUNTER 2022-01-03 08:17 | Outpatient (CLI) | payer OTHER, SELFPAY ==
--- NOTE | 2022-01-03 08:27 | MM_ITS ---
WS: [email or web address] BILATERAL SCREENING 3D TOMOSYNTHESIS DIGITAL MAMMOGRAM WITH CAD HISTORY: Z12.39 - Encounter for other screening for malignant neoplasm... COMPARISON: 01/19/2015, 01/17/2016, 06/30/2017, 01/02/2021 and 02/18/2019 Bilateral CC and MLO views submitted. Computer aided detection analyzed. Breast composition: There are scattered areas of fibroglandular density. No suspicious masses, microc alcifications or architectural distortion. 6 mm nodule in the anterior RIGHT breast central to the ni pple has been stable and present since at least 2014. MM/[place] [id number] IMPRESSION: BI-RADS: 2-Benign FOLLOW UP: 1 Year Follow-up
--- NOTE | 2022-01-03 10:00 | XR_ITS ---
WS: [email or web address] SCREENING DEXA SCAN [place] CLINICAL INFORMATION: Z78.0 - Asymptomatic menopausal state COMPARISON: None. FINDINGS: The L1-L4 bone mineral density measures 0.868 g/cm2. This corresponds to a T score score of -2.6 and Z score of -2.0. Left femoral neck bone mineral density measures 0.819 g/cm2. This corresponds to a T score of -1.5 an d Z score of -1.0. Right femoral neck bone mineral density measures 0.811 g/cm2. This corresponds to a T score -1.6of an d Z score of -1.0. Mean femoral neck bone mineral density measures 0.815 g/cm2. This corresponds to a T score of -1.5 an d Z score of -1.0. XR/XR DEXA axial skeleton* [id number] IMPRESSION: Osteoporosis lumbar spine. Osteopenia femoral necks. Patient's FRAX calculated 10 year probability for major osteoporotic fracture i s 32.2 % and osteoporotic hip fracture is 8.8%.
== END 2022-01-03 08:18 | disposition home or self-care (01) ==
LOC: RAD 08:20
PROVIDERS: PCP Internal Medicine; Visit Provider Nurse Practitioner Women's Health
DX: Z12.31 Encounter for screening mammogram for malignant neoplasm of breast (principal); Z13.820 Encounter for screening for osteoporosis; Z78.0 Asymptomatic menopausal state
CPT/HCPCS: 77063; 77067; 77080

== ENCOUNTER → 2022-02-28 11:04 | Outpatient (BNVA) | payer OTHER, SELFPAY | PROVIDERS: PCP Internal Medicine; Referring Provider Nurse Practitioner Women's Health; Visit Provider Internal Medicine | DX: E66.9 Obesity, unspecified (principal) | CPT/HCPCS: 80053; 82306; 82310; 83735; 83970; 84100; 84443; 85025; 86038 ==

== ENCOUNTER 2023-02-13 09:31 | Outpatient (CLI) | payer OTHER, SELFPAY ==
--- NOTE | 2023-02-13 09:39 | MM_ITS ---
WS: [email or web address] BILATERAL SCREENING DIGITAL TOMOSYNTHESIS MAMMOGRAM WITH CAD HISTORY: Screening. COMPARISON: 01/03/2022, 01/02/2021 and 02/18/2019, 01/17/2016 Bilateral CC and MLO views with tomosynthesis and synthetic mammography submitted. Computer aided det ection analyzed. Breast composition: There are scattered areas of fibroglandular density. No suspicious masses, microc alcifications or architectural distortion. Long-term stability 6 mm mass central to the RIGHT nipple. MM/[place] [id number] IMPRESSION: BI-RADS: 2-Benign FOLLOW UP: 1 Year Follow-up
== END 2023-02-13 09:32 | disposition home or self-care (01) ==
LOC: RAD 09:32
PROVIDERS: PCP Internal Medicine; Visit Provider Internal Medicine
DX: Z12.31 Encounter for screening mammogram for malignant neoplasm of breast (principal)
CPT/HCPCS: 77063; 77067

== ENCOUNTER 2024-02-24 13:10 | Outpatient (CLI) | payer OTHER, SELFPAY ==
--- NOTE | 2024-02-24 13:19 | MM_ITS ---
WS: [email or web address] VIEWS: MLO and CC views both breasts. 3D digital tomosynthesis is also included in this exam. Comparison made with prior exam of 03/14/2008, 01/23/2010, 04/06/2012, 11/28/2014, 01/17/2016, 02/18/2019, , 02/13/2023.. Findings: There was no sign of mass, architectural distortion or suspicious calcification in either breast. Sta ble appearing nodular density at the 12 o'clock position in the anterior RIGHT breast. There are scat tered areas of fibroglandular density MM/[place] [id number] Impression: BI-RADS: 2-Benign finding. FOLLOW-UP: 1 Year Follow-up This mammogram was also analyzed by the Computer Aided Detection System [employer].
--- NOTE | 2024-02-24 14:00 | XR_ITS ---
WS: [email or web address] DEXA (DUAL ENERGY X-RAY ABSORPTIOMETRY) Bone mineral density was performed using a [employer] machine. HISTORY: Z78.0 - Asymptomatic menopausal state COMPARISON: 01/03/2022 Lumbar spine BMD (L1-L4): 0.887 g/cm2 T score: -2.4 Z score: -1.5 Total hip BMD: Left: 0.881 g/cm2. T score: -1.0 Z score: -0.2 Right: 0.863 g/cm2. T score: -1.2 Z score: -0.4 10 year probability of a major osteoporotic fracture is 27.9%. Compared to the prior study from 01/03/2022. Lumbar spine bone mineral density has increased by 2.2%. Bilateral hips bone mineral density has increased by 7.0%. XR/XR DEXA axial skeleton* [id number] IMPRESSION: OSTEOPENIA based upon the WHO classification for females. Significant increase in bone mineral density within the lumbar spine and hips s melisa the prior study.
== END 2024-02-24 13:11 | disposition home or self-care (01) ==
LOC: RAD 13:11
PROVIDERS: PCP Internal Medicine; Visit Provider Nurse Practitioner Women's Health
DX: Z78.0 Asymptomatic menopausal state (principal); M81.0 Age-related osteoporosis without current pathological fracture; Z12.39 Encounter for other screening for malignant neoplasm of breast
CPT/HCPCS: 77063; 77067; 77080

== ENCOUNTER → 2025-02-02 11:29 | Outpatient (BNVA) | payer OTHER, SELFPAY | PROVIDERS: PCP Internal Medicine; Visit Provider Nurse Practitioner Women's Health | DX: Z78.0 Asymptomatic menopausal state (principal) | CPT/HCPCS: 82306; 84443 ==

== ENCOUNTER 2025-02-24 07:43 | Outpatient (CLI) | payer OTHER, SELFPAY ==
--- NOTE | 2025-02-24 08:00 | MM_ITS ---
WS: [email or web address] BILATERAL SCREENING DIGITAL TOMOSYNTHESIS MAMMOGRAM WITH CAD HISTORY: Z12.31 - Encounter for screening mammogram for malignant ... COMPARISON: 02/24/2024, 02/13/2023 and 01/03/2022 Bilateral CC and MLO views with tomosynthesis and synthetic mammography submitted. Computer aided detection analyzed. Breast composition: There are scattered areas of fibroglandular density. No suspicious masses, microcalcifications or architectural distortion. Benign scattered calcifications. 6 mm retroareolar mass in the RIGHT breast is stable over multiple prior years and probably is a lymph node. MM/MM scr BI tomosynthesis [id number] IMPRESSION: BI-RADS: 2 - Benign. FOLLOW UP: 1 Year Follow-up
== END 2025-02-24 07:44 | disposition home or self-care (01) ==
PROVIDERS: PCP Electrodiagnostic Medicine; Visit Provider Nurse Practitioner Women's Health
DX: Z12.31 Encounter for screening mammogram for malignant neoplasm of breast (principal); R92.323 Mammographic fibroglandular density, bilateral breasts; R92.0 Mammographic microcalcification found on diagnostic imaging of breast; D24.1 Benign neoplasm of right breast
CPT/HCPCS: 77063; 77067

== ENCOUNTER 2025-06-23 13:07 | Outpatient (CLI) | payer MEDICARE, SELFPAY ==
--- NOTE | 2025-06-23 13:17 | MR_ITS ---
WS: [email or web address] MRI LUMBAR SPINE NONCONTRAST HISTORY: ACUTE LOW BACK PAIN COMPARISON: None available. TECHNIQUE: Sagittal and axial multisequence imaging is submitted. Normal lumbar alignment with no compression fractures or marrow edema. Chronic endplate changes at L4-5. Disc spaces and vertebral body heights are well-preserved. Conus terminates normally at L1-2 disc level. L1-L2: Normal. L2-L3: Normal. L3-L4: Normal. L4-L5: Mild disc bulging and mild ligamentum flavum and facet arthritis. Very mild narrowing of the foramina, bilateral. L5-S1: Mild annular disc bulging with ligamentum flavum and facet arthritis. No stenosis. MR/MR lumbar spine wo con* [id number] IMPRESSION: 1. No high-grade central or foraminal stenosis. 2. Chronic endplate changes at L4-5. No acute fractures.
== END 2025-06-23 13:08 | disposition home or self-care (01) ==
LOC: RAD 13:10
PROVIDERS: PCP Electrodiagnostic Medicine; Visit Provider Electrodiagnostic Medicine
DX: M51.360 Other intervertebral disc degeneration, lumbar region with discogenic back pain only (principal); M51.370 Other intervertebral disc degeneration, lumbosacral region with discogenic back pain only; M46.97 Unspecified inflammatory spondylopathy, lumbosacral region; M46.96 Unspecified inflammatory spondylopathy, lumbar region; M24.28 Disorder of ligament, vertebrae
CPT/HCPCS: 72148